=== PATIENT | female | born 1980 | race Caucasian/White ===

== ENCOUNTER 2022-09-14 10:30 | Outpatient (REF) | payer OTHER, SELFPAY ==
--- NOTE | ~2022-09-14 | MM_ITS ---
EXAMINATION: MM DIAGNOSTIC DIGITAL BREAST TOMOSYNTHESIS, BILATERAL US DIAGNOSTIC ULTRASOUND BREAST, BILATERAL CLINICAL INFORMATION: Bilateral recall from outside screening mammography for bilateral ovoid asymmetry upper breasts. Family history breast cancer sister, age 50. COMPARISON: Outside mammography 09/12/2022, 01/23/2021, 12/21/2019 ([facility]). TECHNIQUE: Digital breast tomosynthesis is performed. 2D images are generated from the tomosynthesis. The following views are obtained: Right (spot CC x2, spot MLO, ML); Left (spot MLO, ML). Ultrasound bilateral breasts is targeted to the upper breasts 9:00 through 3:00 positions anterior to posterior using grayscale imaging and color Doppler without and with harmonics. Patient imaged with arms elevated as well as down. FINDINGS: Mammography: The breasts are heterogeneously dense, which may obscure small masses (ACR BI-RADS breast composition Category c). The additional views confirm asymmetric densities in the bilateral upper breasts as noted on recent screening. On the left, this resides approximately 9 cm from the nipple and measures 1.3 x 2.0 cm. On the right, there is ovoid asymmetry approximately 11 cm from the nipple measuring 1.0 x 1.5 cm. There is additional asymmetry just inferior medial, approximately 3 cm in diameter. The findings on both sides demonstrate a mixture of fibroglandular and fatty tissue attenuation. There is no spiculation or associated calcification. I suspect the right breast asymmetry is present on right MLO view from 2020 but not as well visualized as greater imaging depth is achieved on recent imaging. The left asymmetry is not seen with certainty on prior exams. Ultrasound: Bilateral breast ultrasound demonstrates no cystic or solid mass. There is no architectural abnormality or focal duct ectasia. No skin thickening or edema tracking in soft tissue planes. The chest wall soft tissues appear normal. There is no ultrasound correlate for the mammography. No clinically palpable mass is appreciated. Management: Results are discussed with the patient and her spouse at time of visit. The findings in the bilateral upper breasts may represent accessory breast tissue given the mixture of fibroglandular and fatty composition. Pseudoangiomatous stromal hyperplasia are could have a similar appearance. The lack of palpable concern and the normal bilateral ultrasound are reassuring. Management options were discussed including additional breast imaging with bilateral breast MRI and surgical consult for further clinical assessment and recommendation. At minimum, short interval follow-up bilateral diagnostic mammography is recommended. MM/MM tomosynthesis added view BI IMPRESSION: -Bilateral asymmetric parenchymal densities upper breasts with mixture of fibroglandular and fatty tissue attenuation. No spiculation or calcification. -Normal bilateral ultrasound. ASSESSMENT: BI-RADS 3: Probably Benign RECOMMENDATION: -Suggest surgical consult for further clinical assessment and recommendation. -MRI breasts may be considered for further evaluation. -Otherwise, bilateral diagnostic mammography in 6 months. This patient's information was entered into a reminder system with a target due date for their next mammogram.
== END 2022-09-14 10:31 | disposition home or self-care (01) ==
LOC: HO.MAMMO 10:30
PROVIDERS: Visit Provider Obstetrics & Gynecology
DX: R92.8 Other abnormal and inconclusive findings on diagnostic imaging of breast (principal)
CPT/HCPCS: 76642; 77062; 77066

== ENCOUNTER → 2022-09-28 10:08 | Outpatient (BNVA) | payer OTHER, SELFPAY | PROVIDERS: Referring Provider Radiology Diagnostic Radiology; Visit Provider Surgery ==

== ENCOUNTER → 2023-03-22 15:00 | Outpatient (BNV) | payer OTHER, SELFPAY | PROVIDERS: PCP Student in an Organized Health Care Education/Training Program; Visit Provider Radiology Diagnostic Radiology | DX: R92.333 Mammographic heterogeneous density, bilateral breasts (principal) | CPT/HCPCS: 77062; 77066 ==

== ENCOUNTER 2023-03-22 15:19 | Outpatient (REF) | payer OTHER, SELFPAY ==
--- NOTE | ~2023-03-22 | MM_ITS ---
EXAMINATION: MM DIAGNOSTIC DIGITAL BREAST TOMOSYNTHESIS, BILATERAL CLINICAL INFORMATION: Evaluate asymmetric parenchymal asymmetries involving upper axillary tail regions bilaterally. Patient has high risk for breast CA in family, with half sister or developing breast CA at age 48. COMPARISON: Mammography: Mammography 09/14/2022, 09/12/2022, 01/23/2021, 12/21/2019. ULTRASOUND: Bilateral 09/14/2022. TECHNIQUE: Digital breast tomosynthesis is performed in both the craniocaudal and mediolateral oblique views along with computer-aided detection (CAD). Synthesized 2D images are generated from the tomosynthesis. In addition, full-field right MLO views were obtained bilaterally. FINDINGS: The breasts are heterogeneously dense, which may obscure small masses (ACR BI-RADS breast composition Category c). There are stable focal asymmetries overlying the superomedial pectoralis muscles right greater than left, of uncertain etiology but most likely representing islands of normal dense breast tissue. These were not seen on ultrasound further supporting that conclusion. Otherwise, there are no suspicious masses, suspicious grouped calcifications, or areas of architectural distortion in either breast. The overall heterogeneously dense parenchymal pattern is stable from prior exams. There are no skin or axillary changes. MM/MM tomosynthesis diagnostic BI IMPRESSION: There is no mammographic evidence of malignancy in either breast. Probably benign islands of dense breast tissue in the axillary tail regions of both breasts. Six-month interval follow-up mammography recommended to include spot compression views. Because of patient's high risk, MRI would be a valid screening adjunct in addition to screening ultrasound. Both of these should be considered. ASSESSMENT: BI-RADS BI-RADS 3 - Probably benign finding(s) - 6 month follow-up suggested RECOMMENDATION: 6 Month F/U Results were discussed with the patient at length by myself and the technologist Bailee Acuna. This patient's information was entered into a reminder system with a target due date for their next mammogram.
== END 2023-03-22 15:20 | disposition home or self-care (01) ==
LOC: HO.MAMMO 15:19
PROVIDERS: PCP Student in an Organized Health Care Education/Training Program; Visit Provider Obstetrics & Gynecology
DX: R92.8 Other abnormal and inconclusive findings on diagnostic imaging of breast (principal)
CPT/HCPCS: 77062; 77066

== ENCOUNTER → 2023-12-19 10:00 | Outpatient (BNV) | payer OTHER, SELFPAY | PROVIDERS: PCP Nurse Practitioner Family; Visit Provider Radiology Diagnostic Radiology | DX: R92.8 Other abnormal and inconclusive findings on diagnostic imaging of breast (principal) | CPT/HCPCS: 19081 ==

== ENCOUNTER 2023-12-19 10:03 | Outpatient (REF) | payer OTHER, SELFPAY ==
--- NOTE | ~2023-12-19 | MM_ITS ---
EXAMINATION: STEREOTACTIC TOMOSYNTHESIS-GUIDED VACUUM-ASSISTED BREAST BIOPSY, LEFT CLINICAL INFORMATION: Stereotactic Biopsy for left breast axillary tail focal asymmetric density with no ultrasound correlate, recommended by [facility] radiologist. COMPARISON: -10/15/2023 bilateral breast ultrasound and diagnostic bilateral mammogram ([facility]). -[facility] 03/22/2023 mammography, as well as 09/14/2022, 09/12/2022, 01/23/2021, and 12/21/2019. TECHNIQUE/PROCEDURE: Informed consent was obtained from the patient after discussion of the benefits, risks, and alternatives to biopsy today. Patient appeared to understand. Gave opportunity for questions. Patient signed consent form. Despite attempts at positioning the left breast craniocaudal, and mediolateral, a persistent mass in 3 dimensions could not be identified despite [employer] radiographs pain taken in the appropriate location. The abnormality did not persist on these images, and hence no biopsy could be performed with any degree of certainty. It appears the abnormality represents an island of normal asymmetric breast tissue. This finding is benign. No further follow-up recommended. MM/MM stereotactic biopsy LT IMPRESSION: 1. Digital tomosynthesis-guided core biopsy left breast was canceled as per above. 2. No persistent abnormality or mass in the left breast upper outer quadrant. The abnormality appears to be related to a normal island of asymmetric breast tissue, as was suggested on 03/22/2023.. No persistent mass or other abnormality is present on the laborer construction or leak gang views. 3. Findings discussed with the patient in detail. Recommend the patient return to routine annual screening mammography in March 2024.
== END 2023-12-19 10:04 | disposition home or self-care (01) ==
LOC: HO.MAMMO 10:03
PROVIDERS: PCP Nurse Practitioner Family; Visit Provider Specialist
DX: R92.8 Other abnormal and inconclusive findings on diagnostic imaging of breast (principal); Z53.8 Procedure and treatment not carried out for other reasons
CPT/HCPCS: 19081

== ENCOUNTER 2024-05-12 10:21 | Outpatient (REF) | payer OTHER, SELFPAY ==
--- NOTE | ~2024-05-12 | MM_ITS ---
EXAMINATION: MM SCREENING DIGITAL BREAST TOMOSYNTHESIS, BILATERAL CLINICAL INFORMATION: Screening. Asymptomatic. Family history of breast cancer including patient's sister. COMPARISON: Mammography: Comparison is made with available priors TECHNIQUE: Digital breast mammography with tomosynthesis is performed in both the craniocaudal and mediolateral oblique views along with computer-aided detection (CAD). FINDINGS: The breasts are extremely dense, which lowers the sensitivity of mammography (ACR BI-RADS breast composition Category d). There are bilateral asymmetries in the superior breast posterior depth on MLO view originally stereotactic core needle biopsy was recommended of the left superior posterior asymmetry however biopsy was canceled. No suspicious calcifications or other abnormal findings. MM/MM tomosynthesis screening BI IMPRESSION: 1. Recommend breast MRI with contrast for further evaluation of asymmetries, patient has dense breast tissue and family history of breast cancer. Breast MRI needs to be ordered by the patient's providing clinician. 2. Recommend additional imaging to review these incompletely evaluated asymmetries in the superior posterior breast on MLO view. ASSESSMENT: BI-RADS BI-RADS 0 - Incomplete: Needs additional Imaging. RECOMMENDATION: 1. Breast MRI is recommended at this time. After breast MRI additional mammographic images could be obtained for further evaluation of the asymmetries 2. Additional views of the bilateral breasts 2. Targeted ultrasound if warranted after review of the additional views. 3. Radiology department staff will contact the patient for additional imaging. Additional Imaging required This examination should not preclude the clinical evaluation of a suspicious palpable abnormality. This patient's information was entered into a reminder system with a target due date for their next mammogram. Electronically signed by: Lisa Packer DO 05/18/2024 03:11 PM [email or web address]
== END 2024-05-12 10:22 | disposition home or self-care (01) ==
LOC: HO.MAMMO 10:21
PROVIDERS: Absent Provider Obstetrics & Gynecology; PCP Nurse Practitioner Family; Visit Provider Nurse Practitioner Family
DX: Z12.31 Encounter for screening mammogram for malignant neoplasm of breast (principal)
CPT/HCPCS: 77063; 77067

== ENCOUNTER → 2024-05-12 10:30 | Outpatient (BNV) | payer OTHER, SELFPAY | PROVIDERS: Absent Provider Obstetrics & Gynecology; PCP Nurse Practitioner Family; Visit Provider Internal Medicine | DX: Z12.31 Encounter for screening mammogram for malignant neoplasm of breast (principal) | CPT/HCPCS: 77063; 77067 ==